=== PATIENT | male | born 2000 | race Caucasian/White ===

== ENCOUNTER 2020-11-18 17:19 | Emergency (ER) | payer OTHER ==
[2020-11-18] MEDS ORDERED: Lidocaine 1% 10 ML MDV ONE (17:38)
--- NOTE | 2020-11-18 18:12 | EDM.PDOC ---
ED HPI GENERAL MEDICAL PROBLEM - General Chief Complaint: Laceration Stated Complaint: NOSE LAC Time Seen by Provider: 11/18/20 17:26 Source of Information: Reports: Patient, RN Notes Reviewed History Limitations: Reports: No Limitations - History of Present Illness INITIAL COMMENTS - FREE TEXT/NARRATIVE: Patient is a 20-year-old male who presents to the ER for the evaluation of a right nasal laceration. He was at work, using a cheater pipe, to loosen a bolt with a wrench, when the pipe slipped off of the wrench, and ended up hitting him in the face. This resulted in a roughly 1 cm laceration to his right nare, and it does go all the way through to the inside of the nasal passage. There is no disruption of the nasal septum, he has no tenderness in his face, he did not lose consciousness. There is some mild bleeding, but seems to be quite under control at this time. He did not take any sort of pain medications prior to coming to the ER. He is up-to-date on immunizations. Patient denies any other sick-like symptoms, fever/chills, cough/shortness of breath, nausea/vomiting/diarrhea. Nose Pain Score (Numeric/FACES): 3 - Related Data Allergies Allergy/AdvReac Type Severity Reaction Status Date / Time No Known Allergies Allergy Verified 11/18/20 17:27 Home Meds: Home Meds Lisdexamfetamine Dimesylate [Vyvanse] 40 mg PO DAILY 11/18/20 [History] Past Medical History HEENT History: Reports: Impaired Vision Other HEENT History: wears eyeglasses. Cardiovascular History: Reports: Other (See Below) Other Cardiovascular History: atypical chest pain for past 2 yrs. Respiratory History: Reports: Asthma, Bronchitis, Recurrent, Other (See Below) Other Respiratory History: seasonal allergies. Psychiatric History: Reports: Depression Other Psychiatric History: nicotine - Infectious Disease History Infectious Disease History: Reports: Chicken Pox Social & Family History - Caffeine Use Caffeine Use: Reports: Coffee, Energy Drinks, Soda, Tea - Recreational Drug Use Recreational Drug Use: No ED ROS GENERAL - Review of Systems Review Of Systems: Comprehensive ROS is negative, except as noted in HPI. ED EXAM, SKIN/RASH Exam: See Below Exam Limited By: No Limitations General Appearance: Alert, WD/WN, No Apparent Distress Nose: Normal Mucosa Throat/Mouth: Normal Inspection, Normal Lips, Normal Teeth, Normal Gums, Normal Oropharynx, Normal Voice, No Airway Compromise Head: Normocephalic. No: Facial Swelling, Facial Tenderness, Sinus Tenderness Neck: Normal Inspection Respiratory/Chest: No Respiratory Distress, Lungs Clear, Normal Breath Sounds, No Accessory Muscle Use, Chest Non-Tender Cardiovascular: Normal Peripheral Pulses, Regular Rate, Rhythm, No Edema Extremities: Normal Inspection, Normal Capillary Refill Neurological: Alert, Oriented, Normal Cognition, No Motor/Sensory Deficits Psychiatric: Normal Affect, Normal Mood Skin: Warm, Dry, Normal Color, No Rash, Wound/Incision (1 cm linear laceration to the right nare, this runs in a vertical distribution, this does run through to the inside of the nasal passage.) ED SKIN PROCEDURES - Laceration/Wound Repair Right Nare Appearance: Subcutaneous, Linear, Clean Distal NVT: Neuro & Vascular Intact, No Tendon Injury Anesthetic Type: Local Local Anesthesia - Lidocaine (Xylocaine): 1% Plain Local Anesthetic Volume: 2cc Skin Prep: Chlorhexidine (Hibiciens), Saline Exploration/Debridement/Repair: Wound Explored, In a Bloodless Field, Explored to Base, No Foreign Material Found Closed with: Sutures Lac/Wound length In cm: 1 Suture Size: 4-0 # of Sutures: 4 Suture Type: Prolene, Interrupted, Simple Sterile Dressing Applied: Nurse Tetanus Status Addressed: Yes Complications: No Course - Vital Signs Last Recorded V/S: Last Vital Signs Temp 97.2 F 11/18/20 17:25 Pulse 111 H 11/18/20 17:25 Resp 16 11/18/20 17:25 BP 137/94 H 11/18/20 17:25 Pulse Ox 98 11/18/20 17:25 - Orders/Labs/Meds Meds: Medications Discontinued Medications Generic Name Dose Route Start Last Admin Trade Name Freq PRN Reason Stop Dose Admin Lidocaine HCl Confirm 11/18/20 17:38 Lidocaine 1% 10 Ml Mdv Administered 11/18/20 17:39 Dose 10 ml .ROUTE .STK-MED ONE Departure - Departure Time of Disposition: 18:11 Disposition: Home, Self-Care 01 Condition: Good Clinical Impression: Simple laceration of nose - Discharge Information *PRESCRIPTION DRUG MONITORING PROGRAM REVIEWED*: No *COPY OF PRESCRIPTION DRUG MONITORING REPORT IN PATIENT JONH: No Instructions: Sutures, Carlie, or Adhesive Wound Closure, [id number] Referrals: PCP,None [Primary Care Provider] - Forms: ED Department Discharge Additional Instructions: You have been evaluated in the ED for your laceration. Sutures will need to stay in for 7 to 10 days. You may return to the ED or any clinic for removal. Please keep this area clean and dry, you may cleanse with regular soap and water. No vigorous scrubbing. Please try to avoid submerging the affected area in water for prolonged periods of time until the sutures are removed. Watch out for signs of infection like increased redness, swelling, pain at the laceration site, or if you should develop any fevers or chills. You were given a prescription for antibiotics, please take as directed until gone. You will need to go to a local pharmacy to get this filled and start taking as directed. The pharmacy at [facility], and the [facility] located near [facility] will be open for tonight's purposes until 8 PM. Please return to ED if your symptoms change or worsen. Sepsis Event Note (ED) - Evaluation Sepsis Screening Result: No Definite Risk - Focused Exam Vital Signs: Vital Signs Temp Pulse Resp BP Pulse Ox 11/18/20 17:25 97.2 F 111 H 16 137/94 H 98
== END 2020-11-18 18:20 | disposition home or self-care (01) ==
LOC: JD.ED 17:19
DX: S01.21XA Laceration without foreign body of nose, initial encounter (principal); W20.8XXA Other cause of strike by thrown, projected or falling object, initial encounter
CPT/HCPCS: 12011; 99282; 99282-25

== ENCOUNTER 2020-11-19 15:22 | Emergency (ER) | payer OTHER ==
--- NOTE | 2020-11-19 15:50 | EDM.PDOC ---
ED HPI GENERAL MEDICAL PROBLEM - General Chief Complaint: Headache Stated Complaint: HEAD HURTS Time Seen by Provider: 11/19/20 15:35 Source of Information: Reports: Patient, RN Notes Reviewed History Limitations: Reports: No Limitations - History of Present Illness INITIAL COMMENTS - FREE TEXT/NARRATIVE: Patient is a 20-year-old male who presents to the ER for his ongoing headache. Patient was evaluated in the ER by myself yesterday, for a nasal injury, in which he had a pipe slipped off the wrench, and the pipe ended up hitting him in the right side of the face. His nose was repaired with some sutures, he was discharged home with general recommendations. He notes he went to work today, began to have a headache off and on, for which ibuprofen takes care of. He note s at times his thoughts were kind's body and he was somewhat confused that he could not think properly or do his normal tasks like he did. He also felt some slight lightheadedness and woozy and had to sit down and then that got better. He is not having any blurred vision or double vision, no fever/chills, no cough no shortness of breath, he did have some slight nausea when he felt lightheaded this morning but this has subsided as well. His boss became concerned that he might have a concussion so sent him back to the ER for evaluation. Nursing staff did appreciate some very slight bruising to under his right eye, but he is stating that this area is not tender. Head Pain Score (Numeric/FACES): 3 - Related Data Allergies Allergy/AdvReac Type Severity Reaction Status Date / Time cat dander Allergy Itching Verified 11/19/20 15:41 seasonal alleries Allergy Sneezing Uncoded 11/19/20 15:42 Home Meds: Home Meds Lisdexamfetamine Dimesylate [Vyvanse] 40 mg PO DAILY 11/18/20 [History] Past Medical History HEENT History: Reports: Impaired Vision Other HEENT History: wears eyeglasses. Cardiovascular History: Reports: Other (See Below) Other Cardiovascular History: atypical chest pain for past 2 yrs. Respiratory History: Reports: Asthma, Bronchitis, Recurrent, Other (See Below) Other Respiratory History: seasonal allergies. Psychiatric History: Reports: Depression Other Psychiatric History: nicotine - Infectious Disease History Infectious Disease History: Reports: Chicken Pox Social & Family History - Caffeine Use Caffeine Use: Reports: Coffee, Energy Drinks, Soda, Tea - Recreational Drug Use Recreational Drug Use: No ED ROS GENERAL - Review of Systems Review Of Systems: Comprehensive ROS is negative, except as noted in HPI. - Physical Exam Exam: See Below Exam Limited By: No Limitations General Appearance: Alert, WD/WN, No Apparent Distress Eye Exam: Bilateral Eye: EOMI, Normal Inspection, PERRL Throat/Mouth: Normal Inspection, Normal Lips, Normal Teeth, Normal Gums, Normal Oropharynx, Normal Voice, No Airway Compromise Head Exam: Normocephalic, Facial Lacerations (r nasal laceration with sutures in place; dried blood about the wound) Neck: Normal Inspection, Supple, Non-Tender, Full Range of Motion Respiratory/Chest: No Respiratory Distress, Lungs Clear, Normal Breath Sounds, No Accessory Muscle Use, Chest Non-Tender Cardiovascular: Normal Peripheral Pulses, Regular Rate, Rhythm, No Edema Neuro Exam (Abbreviated): Alert, Oriented, Normal Cognition, No Motor/Sensory Deficits Extremities: Normal Inspection, Normal Capillary Refill Psychiatric: Normal Affect, Normal Mood Skin Exam: Warm, Dry, Intact, Normal Color, No Rash Course - Vital Signs Last Recorded V/S: Last Vital Signs Temp 97.8 F 11/19/20 15:33 Pulse 82 11/19/20 15:33 Resp 16 11/19/20 15:33 BP 149/93 H 11/19/20 15:33 Pulse Ox 97 11/19/20 15:33 - Re-Assessments/Exams Free Text/Narrative Re-Assessment/Exam: 11/19/20 15:53 Patient presents to the ER for his headache and ongoing concussion-like syndrome. There is no doubt, that he could have postconcussive syndrome, I did go over the worrisome signs of concern to return to the ER, and what to expect with this. Notes that he does have the weekend off, and will try to take it easy over the weekend. He will return to the ER if anything changes or worsens. Departure - Departure Time of Disposition: 15:49 Disposition: Home, Self-Care 01 Condition: Good Clinical Impression: Post concussion syndrome - Discharge Information *PRESCRIPTION DRUG MONITORING PROGRAM REVIEWED*: No *COPY OF PRESCRIPTION DRUG MONITORING REPORT IN PATIENT JONH: No Instructions: Post-Concussion Syndrome, [id number] Referrals: PCP,None [Primary Care Provider] - Forms: ED Department Discharge Additional Instructions: You were evaluated in the ED today for your head ache/confusion/lightheadedness You have been clinically diagnosed with a concussion or post-concussive syndrome. A concussion can affect how the brain works for a while. It may lead to headaches, changes in alertness, or loss of consciousness. Getting better from a concussion takes days to weeks or even months. You may be irritable, have trouble concentrating, or be unable to remember things. You may also have headaches, dizziness, or blurry vision. These problems will likely recover slowly. You may want to get help from family or friends for making important decisions. You may use acetaminophen (Tylenol) 500mg or 600 mg ibuprofen (Advil/Motrin) Q6H for a headache. You DO NOT need to stay in bed. Light activity around the home is okay. But avoid exercise, lifting weights, or other heavy activity. You may want to keep your diet light if you have nausea and vomiting. Drink fluids to stay hydrated. As long as you have symptoms, avoid sports activities, operating machines, being overly active, doing physical labor. Ask your doctor when you can return to your activities. If symptoms DO NOT go away or are not improving after 2 or 3 weeks, talk to your doctor. Call the doctor if you have: -A stiff neck -Fluid and blood leaking from your nose or ears -A hard time waking up or have become more sleepy -A headache that is getting worse, lasts a long time, or is not relieved by [id number] pain relievers -Fever -Vomiting more than 3 times -Problems walking or talking -Changes in speech (slurred, difficult to understand, does not make sense) -Problems thinking straight -Seizures (jerking your arms or legs without control) -Changes in behavior or unusual behavior -Double vision Please return to the ED if your symptoms change or worsen. Sepsis Event Note (ED) - Evaluation Sepsis Screening Result: No Definite Risk - Focused Exam Vital Signs: Vital Signs Temp Pulse Resp BP Pulse Ox 11/19/20 15:33 97.8 F 82 16 149/93 H 97
== END 2020-11-19 16:04 | disposition home or self-care (01) ==
LOC: JD.ED 15:22
DX: F07.81 Postconcussional syndrome (principal); J45.909 Unspecified asthma, uncomplicated; Z91.048 Other nonmedicinal substance allergy status
CPT/HCPCS: 99283